=== PATIENT | female | born 1980 | race Caucasian/White ===

== ENCOUNTER → 2016-08-12 | Outpatient (REF) | payer OTHER ==
[2016-08-12 16:23] LABS: FREE T4 1.57 NG/DL (0.76-1.46)
== END ==
LOC: M LABDRAW1 15:28
PROVIDERS: ATTEND Nurse Practitioner Family
DX: E03.9 Hypothyroidism, unspecified (principal); E55.9 Vitamin D deficiency, unspecified

== ENCOUNTER → 2016-12-24 | Outpatient (REF) | payer OTHER ==
[2016-12-24 13:12] LABS: MEAN CORPUSCULAR HEMOGLOBIN 31.4 pg (27.0-33.0); MEAN CORPUSCULAR HGB CONC 33.8 g/dl (32.0-36.5); MEAN CORPUSCULAR VOLUME 93.1 fl (80.0-96.0); RED CELL DISTRIBUTION WIDTH 12.9 % (11.5-14.5); WHITE BLOOD COUNT 8.9 K/mm3 (4.0-10.0)
[2016-12-24 13:51] LABS: ANION GAP 6 MEQ/L (8-16); AST/SGOT 17 U/L (15-37); BLOOD UREA NITROGEN 11 MG/DL (7-18); CALCIUM LEVEL 9.1 MG/DL (8.5-10.1); CARBON DIOXIDE LEVEL 29 MEQ/L (21-32); CHLORIDE LEVEL 100 MEQ/L (98-107); CREATININE FOR GFR 0.74 MG/DL (0.55-1.02); GLOMERULAR FILTRATION RATE > 60.0 (>60); GLUCOSE, FASTING 66 MG/DL (70-105); POTASSIUM SERUM 4.2 MEQ/L (3.5-5.1); SODIUM LEVEL 135 MEQ/L (136-145)
[2016-12-24 13:52] LABS: ALBUMIN 3.7 GM/DL (3.2-5.2); ALBUMIN/GLOBULIN RATIO 1.06 (1.00-1.93); ALKALINE PHOSPHATASE 88 U/L (45-117); ALT/SGPT 19 U/L (12-78); BILIRUBIN,TOTAL 0.3 MG/DL (0.2-1.0); FERRITIN 10 NG/ML (8-252); FREE T4 1.47 NG/DL (0.76-1.46); TOTAL PROTEIN 7.2 GM/DL (6.4-8.2)
== END ==
LOC: M SFHCPLAZ 09:08
PROVIDERS: ATTEND Nurse Practitioner Family
DX: R53.83 Other fatigue (principal); E03.9 Hypothyroidism, unspecified; E55.9 Vitamin D deficiency, unspecified

== ENCOUNTER → 2017-06-05 | Outpatient (REF) | payer OTHER ==
[2017-06-05 12:21] LABS: HEMATOCRIT 39.8 % (36.0-47.0); MEAN CORPUSCULAR HEMOGLOBIN 30.1 pg (27.0-33.0); MEAN CORPUSCULAR HGB CONC 32.7 g/dl (32.0-36.5); MEAN CORPUSCULAR VOLUME 92.1 fl (80.0-96.0); PLATELET COUNT, AUTOMATED 373 10^3/uL (150-450); RED BLOOD COUNT 4.32 10^6/uL (4.00-5.40); RED CELL DISTRIBUTION WIDTH 12.6 % (11.5-14.5)
[2017-06-05 12:40] LABS: TOTAL 25(OH) VITAMIN D 14.8 NG/ML (30.0-100.0)
[2017-06-05 12:40] LABS: FOLATE 7.7 NG/ML; VITAMIN B12 LEVEL 381 PG/ML
[2017-06-05 12:45] LABS: FERRITIN 10 NG/ML (8-252); FREE T4 0.85 NG/DL (0.76-1.46)
== END ==
LOC: M SFHCPLAZ 08:25
DX: R53.83 Other fatigue (principal); E03.9 Hypothyroidism, unspecified; E55.9 Vitamin D deficiency, unspecified
CPT/HCPCS: 82746

== ENCOUNTER → 2017-07-08 | Outpatient (CLI) | payer OTHER | LOC: M SLEEP HO 12:50 | DX: G47.30 Sleep apnea, unspecified (principal) ==

== ENCOUNTER → 2018-01-02 | Outpatient (REF) | payer OTHER ==
[2018-01-02 12:20] LABS: FREE T4 0.76 NG/DL (0.76-1.46)
== END ==
LOC: M SFHCPLAZ 08:14
DX: E03.9 Hypothyroidism, unspecified (principal)

== ENCOUNTER → 2018-03-05 | Outpatient (REF) | payer OTHER ==
[2018-03-05 15:26] LABS: TOTAL 25(OH) VITAMIN D 9.2 NG/ML (30.0-100.0)
== END ==
LOC: M SFHCPLAZ 09:17
DX: E03.9 Hypothyroidism, unspecified (principal); E55.9 Vitamin D deficiency, unspecified

== ENCOUNTER 2018-09-23 17:18 | Emergency (ER) | payer OTHER ==
[~2018-09-23] VITALS: Ht 160 cm; Wt 95.9 kg
[2018-09-23] MEDS ORDERED: LEVO2TA PO ×2 (17:28→22:05)
[2018-09-23] MEDS ORDERED: LEXA1TAB PO (17:28)
[2018-09-23 18:25] LABS: BASO # 0.2 10^3/uL (0.0-0.2); BASO % 1.4 % (0.0-1.0); EOS # 0.2 10^3/uL (0.0-0.50); EOS % 1.4 % (0.0-3.0); HEMATOCRIT 40.5 % (36.0-47.0); HEMOGLOBIN 13.3 g/dl (12.0-15.5); LYMPH # 3.9 10^3/uL (1.5-4.5); LYMPH % 35.9 % (24.0-44.0); MEAN CORPUSCULAR HEMOGLOBIN 28.6 pg (27.0-33.0); MEAN CORPUSCULAR HGB CONC 32.8 g/dl (32.0-36.5); MEAN CORPUSCULAR VOLUME 87.1 fl (80.0-96.0); MONO # 0.6 10^3/uL (0.0-0.8); MONO % 5.6 % (0.0-5.0); NEUTROPHILS % 55.3 % (36.0-66.0); PLATELET COUNT, AUTOMATED 437 10^3/uL (150-450); RED BLOOD COUNT 4.65 10^6/uL (4.00-5.40); WHITE BLOOD COUNT 10.9 10^3/uL (4.0-10.0)
[2018-09-23] MEDS ORDERED: LABETALOL HCL 100 MG/20 ML VIAL IV STA (18:29)
[2018-09-23 18:36] LABS: INR 0.92; PROTHROMBIN TIME 12.4 SECONDS (12.1-14.4)
[2018-09-23 18:37] LABS: PARTIAL THROMBOPLASTIN TIME 31.2 SECONDS (25.4-37.6)
[2018-09-23 18:39] LABS: D-DIMER QUANT 393.46 ng/ml (<500)
--- NOTE | 2018-09-23 18:40 | REP ---
Chest one-view HISTORY: Chest pain Comparison: None The lungs are clear. The heart is normal in size. The pulmonary vasculature is normal in appearance. Impression: No acute disease. Electronically Signed by Dayday Monreal MD 09/23/2018 06:31 P
[2018-09-23 18:51] LABS: ERYTHROCYTE SEDIMENTATION RATE 24 mm/hr (0-20)
[2018-09-23 19:09] LABS: ALBUMIN 3.6 GM/DL (3.2-5.2); ALT/SGPT 20 U/L (12-78); BILIRUBIN,DIRECT < 0.1 MG/DL (0.0-0.2); BILIRUBIN,TOTAL 0.3 MG/DL (0.2-1.0); BLOOD UREA NITROGEN 12 MG/DL (7-18); C REACTIVE PROTEIN QUANTITATIV < 0.30 MG/DL (0.00-0.30); CALCIUM LEVEL 8.6 MG/DL (8.5-10.1); CARBON DIOXIDE LEVEL 27 MEQ/L (21-32); CHLORIDE LEVEL 106 MEQ/L (98-107); CK-MB VALUE MASS < 1.0 NG/ML (<3.6); CPK CREATINE PHOSPHOKINASE 47 U/L (26-192); CREATININE FOR GFR 0.82 MG/DL (0.55-1.30); FREE T4 0.67 NG/DL (0.76-1.46); GLOMERULAR FILTRATION RATE > 60.0 (>58); GLUCOSE, FASTING 83 MG/DL (70-100); MB/CK RELATIVE INDEX 2.13 (< OR =4); NT-PRO BNP 122 PG/ML (<125); POTASSIUM SERUM 4.1 MEQ/L (3.5-5.1); SODIUM LEVEL 140 MEQ/L (136-145); TOTAL PROTEIN 7.3 GM/DL (6.4-8.2); TROPONIN I < 0.02 NG/ML (< 0.10)
[2018-09-23] MEDS ORDERED: LISINOPRIL 10 MG TAB PO ONE (20:30)
[2018-09-23] MEDS ORDERED: FUROSEMIDE 20 MG/2 ML VIAL (J1940) IV ONE (20:30)
[2018-09-23] MEDS ORDERED: CARVedilol 12.5 MG TAB PO ONE (20:30)
[2018-09-23 20:39] VITALS: BP 219/103
[2018-09-23] MEDS ORDERED: LISI10TA4 PO (22:05)
[2018-09-23] MEDS ORDERED: SYNT50TA PO (22:05)
[2018-09-23] MEDS ORDERED: CHLO125TA PO (22:05)
[2018-09-23] MEDS ORDERED: CORE25TA PO (22:05)
[2018-09-23] MEDS ORDERED: ADULKIT XX (22:14)
--- NOTE | 2018-09-23 22:22 | ECGEPIP ---
Stationary ECG Study [facility] - ED Test Date: 2018-09-23 Pat Name: SAYRA BRUCE Department: Room: - Gender: F Manager Relationship: tamara : 1980 Requested By: NAMRATA Velazco Order Number: [id number] Reading MD: Cyrus Sequeira Measurements Intervals [place] Rate: 77 P: -1 IL: 182 QRS: 0 QRSD: 87 T: 110 QT: 378 QTc: 428 Interpretive Statements SINUS RHYTHM MINIMAL VOLTAGE CRITERIA FOR LVH, CONSIDER NORMAL VARIANT NONSPECIFIC T-WAVE ABNORMALITY NO PRIORS FOR COMPARISON Electronically Signed On 09-23-2018 22:22:32 EDT by Cyrus Sequeira
[2018-09-23 22:30] VITALS: BP 118/56
== END 2018-09-23 22:48 | disposition home or self-care (01) ==
LOC: M ED 17:18
DX: I10 Essential (primary) hypertension (principal); E03.9 Hypothyroidism, unspecified; F41.9 Anxiety disorder, unspecified; F32.9 Major depressive disorder, single episode, unspecified; E78.5 Hyperlipidemia, unspecified; Z98.84 Bariatric surgery status; Z79.899 Other long term (current) drug therapy
CPT/HCPCS: 36415; 71045; 80048; 80076; 81001; 82550; 82553; 83880; 84439; 84443; 85025; 85379; 85610; 85652; 85730; 86140; 93005; 93041; 94760; 96374; 96375; 99285; J1940

== ENCOUNTER → 2018-09-29 | Outpatient (REF) | payer OTHER ==
[~2018-09-29] MED LIST: ADULKIT XX; CHLO125TA PO; CORE25TA PO; LEVO2TA PO; LEXA1TAB PO; LISI10TA4 PO; SYNT50TA PO
[2018-09-29 16:32] LABS: CREATININE FOR GFR 1.11 MG/DL (0.55-1.30); POTASSIUM SERUM 4.6 MEQ/L (3.5-5.1)
== END ==
LOC: M LABDRAW1 16:07
PROVIDERS: ATTEND Nurse Practitioner Family
DX: I10 Essential (primary) hypertension (principal)

== ENCOUNTER → 2018-10-01 | Outpatient (REF) | payer OTHER | LOC: M SFHCPLAZ 09:09 | PROVIDERS: ATTEND Nurse Practitioner Family | DX: R34 Anuria and oliguria (principal); I10 Essential (primary) hypertension; Z53.9 Procedure and treatment not carried out, unspecified reason ==

== ENCOUNTER → 2018-10-02 | Outpatient (CLI) | payer OTHER ==
--- NOTE | 2018-10-02 08:31 | REP ---
Clinical: Right. Hypertension and decreased urine output. Technique: Bosch scale and color Doppler evaluation of the kidneys and renal vasculature using curved array transducer. Findings: The kidneys are essentially normal in contour size and echogenicity and reniform shape without hydronephrosis, nephrolithiasis, cystic or renal mass lesion. Right kidney measures 11.0 x 5.8 x 5.7 cm . Left kidney measures 11.1 x 5.6 x 6.5 cm . Simple right renal cyst measures 1.3 cm maximal diameter and simple left renal cyst measures 1.0 cm maximal diameter. Bladder is incompletely distended and grossly normal by current evaluation. Incidental enlarged left ovary measuring 4.4 x 3.7 x 3.6 cm with 3.6 cm complex cyst. Color Doppler evaluation of the renal vasculature demonstrates normal arterial wave patterns, velocities, renal aortic ratios, resistive indices and the acceleration time. No sonographic evidence for renal arterial stenosis noted. Renal vein is patent. Right Kidney: Peak arterial velocity: 102 cm/sec . Renal aortic ratio: 1.3 . Resistive indices: 0.63 - 0.66 Acceleration times: 0.038 - 0.054 . Left kidney: Peak arterial velocity: 87 cm/sec . Renal aortic ratio: 1.1 . Resistive indices: 0.62 - 0.65 . Acceleration times: 0.036 - 0.048 . Impression: 1. Solitary bilateral small renal cysts. No hydronephrosis. 2. No sonographic evidence to suggest renal arterial stenosis. Electronically Signed by Sergey Manzanares MD 10/02/2018 08:21 A
== END ==
LOC: M RAD 06:25
PROVIDERS: ATTEND Nurse Practitioner Family
DX: N83.202 Unspecified ovarian cyst, left side (principal); N28.1 Cyst of kidney, acquired; I10 Essential (primary) hypertension

== ENCOUNTER → 2018-10-02 | Outpatient (REF) | payer OTHER ==
[2018-10-02 10:12] LABS: APPEARANCE, URINE CLEAR (CLEAR); BACTERIA, URINE AUTO NEGATIVE (NEGATIVE); BILIRUBIN, URINE AUTO NEGATIVE (NEGATIVE); BLOOD, URINE BLOOD NEGATIVE (NEGATIVE); COLOR, URINE YELLOW (YELLOW); GLUCOSE, URINE (UA) AUTO NEGATIVE (NEGATIVE); KETONE, URINE AUTO NEGATIVE (NEGATIVE); LEUKOCYTE ESTERASE, URINE AUTO NEGATIVE (NEGATIVE); MUCUS, URINE SMALL (NEGATIVE); NITRITE, URINE AUTO NEGATIVE (NEGATIVE); PROTEIN, URINE AUTO NEGATIVE (NEGATIVE); RBC, URINE AUTO 1 /HPF (0-3); SPECIFIC GRAVITY URINE AUTO 1.021 (1.002-1.035); SQUAMOUS EPITHELIAL CELL UR AU 1 /HPF (0-6); WBC, URINE AUTO 1 /HPF (0-3)
[2018-10-02 11:05] LABS: MALB URINE SIEMENS 17.3 MG/L; MAU/CREAT RATIO 13.5 MCG/MG (0.0-30.0)
== END ==
LOC: M SFHCPLAZ 09:10
PROVIDERS: ATTEND Nurse Practitioner Family
DX: R34 Anuria and oliguria (principal); I10 Essential (primary) hypertension

== ENCOUNTER → 2018-11-18 | Outpatient (REF) | payer OTHER ==
[2018-11-18 10:14] LABS: ALBUMIN 3.5 GM/DL (3.2-5.2); ALT/SGPT 17 U/L (12-78); BILIRUBIN,TOTAL 0.3 MG/DL (0.2-1.0); BLOOD UREA NITROGEN 19 MG/DL (7-18); CALCIUM LEVEL 9.4 MG/DL (8.5-10.1); CARBON DIOXIDE LEVEL 30 MEQ/L (21-32); CHLORIDE LEVEL 105 MEQ/L (98-107); CHOLESTEROL LEVEL 181 MG/DL (<200); CREATININE FOR GFR 0.98 MG/DL (0.55-1.30); FREE T4 1.42 NG/DL (0.76-1.46); GLOMERULAR FILTRATION RATE > 60.0 (>58); GLUCOSE, FASTING 92 MG/DL (70-100); HDL CHOLESTEROL 55 MG/DL (>40); LDL CHOLESTEROL 101 MG/DL (<100); NON-HDL-C 126 MG/DL; POTASSIUM SERUM 4.3 MEQ/L (3.5-5.1); SODIUM LEVEL 140 MEQ/L (136-145); THYROID STIMULATING HORMONE 0.685 uIU/ML (0.358-3.740); TOTAL PROTEIN 6.8 GM/DL (6.4-8.2); TRIGLYCERIDES LEVEL 124 MG/DL (<150)
[2018-11-18 10:22] LABS: TOTAL 25(OH) VITAMIN D 12.2 NG/ML (30.0-100.0)
[2018-11-18 10:26] LABS: HEMOGLOBIN A1c 6.4 %
[2018-11-18 10:35] LABS: MAU/CREAT RATIO 10.6 MCG/MG (0.0-30.0)
== END ==
LOC: M SFHCPLAZ 07:48
PROVIDERS: ATTEND Nurse Practitioner Family
DX: E03.9 Hypothyroidism, unspecified (principal); E55.9 Vitamin D deficiency, unspecified; E88.81 Metabolic syndrome and other insulin resistance

== ENCOUNTER → 2019-02-16 | Outpatient (REF) | payer OTHER ==
[2019-02-16 12:41] LABS: HEMOGLOBIN A1c 5.5 %
[2019-02-16 13:00] LABS: TOTAL 25(OH) VITAMIN D 20.5 NG/ML (30.0-100.0)
[2019-02-16 13:09] LABS: ALBUMIN 3.6 GM/DL (3.2-5.2); ALT/SGPT 18 U/L (12-78); BILIRUBIN,TOTAL 0.4 MG/DL (0.2-1.0); BLOOD UREA NITROGEN 19 MG/DL (7-18); CALCIUM LEVEL 8.7 MG/DL (8.5-10.1); CARBON DIOXIDE LEVEL 24 MEQ/L (21-32); CHLORIDE LEVEL 102 MEQ/L (98-107); CREATININE FOR GFR 1.04 MG/DL (0.55-1.30); FREE T4 1.35 NG/DL (0.76-1.46); GLOMERULAR FILTRATION RATE > 60.0 (>58); GLUCOSE, FASTING 86 MG/DL (70-100); POTASSIUM SERUM 4.2 MEQ/L (3.5-5.1); SODIUM LEVEL 136 MEQ/L (136-145); TOTAL PROTEIN 6.9 GM/DL (6.4-8.2)
== END ==
LOC: M LABDRAW1 10:54
PROVIDERS: ATTEND Nurse Practitioner Family
DX: E03.9 Hypothyroidism, unspecified (principal); E88.81 Metabolic syndrome and other insulin resistance; E55.9 Vitamin D deficiency, unspecified

== ENCOUNTER → 2019-11-03 | Outpatient (REF) | payer BC ==
[2019-11-03 18:05] LABS: BLOOD UREA NITROGEN 14 MG/DL (7-18); CALCIUM LEVEL 8.9 MG/DL (8.5-10.1); CARBON DIOXIDE LEVEL 29 MEQ/L (21-32); CHLORIDE LEVEL 106 MEQ/L (98-107); FREE T4 1.37 NG/DL (0.76-1.46); GLOMERULAR FILTRATION RATE > 60.0 (>58); GLUCOSE, FASTING 67 MG/DL (70-100); POTASSIUM SERUM 4.4 MEQ/L (3.5-5.1); SODIUM LEVEL 140 MEQ/L (136-145); TOTAL 25(OH) VITAMIN D 18.4 NG/ML (30.0-100.0)
== END ==
LOC: M SFHCPLAZ 15:09
PROVIDERS: ATTEND Nurse Practitioner Family
DX: E03.9 Hypothyroidism, unspecified (principal); I10 Essential (primary) hypertension; E55.9 Vitamin D deficiency, unspecified

== ENCOUNTER → 2019-11-05 | Outpatient (CLI) | payer BC ==
--- NOTE | 2019-11-06 09:13 | REP ---
BILATERAL MAMMOGRAM WITH 3D TOMOSYNTHESIS AND ULTRASOUND RIGHT BREAST: CLINICAL HISTORY: Right breast pain, outer right breast for 3 weeks. No comparison studies. MLO and CC views of both breasts performed with 3D tomosynthesis. There is mild to moderate diffuse scattered fibroglandular tissue bilaterally. No suspicious mass or architectural distortion is seen bilaterally. No suspicious clusters of microcalcifications are seen. Real-time sonographic evaluation of the right breast are performed in the region of pain. There is no sonographic evidence of cystic or solid mass in this region. According to the agricultural research technologist, this was predominantly in the 6-o'clock region of the right breast. IMPRESSION: BIRADS 1: BI-RADS/ACR category 1 mammogram. Negative Mammogram. ACR 1 negative mammogram. No mass or clustered microcalcifications bilaterally. No mammographic or sonographic evidence of mass at the site of the reported pain right breast. Clinical correlation and followup recommended. Recommend followup mammogram in 1 year. This mammogram was interpreted with the aid of an FDA-approved computer-aided detection system. A. Negative x-ray reports should not delay biopsy if a dominant or clinically suspicious mass is present. B. Four to eight percent of cancers are not identified by x-ray. C. Adenosis and dense breasts may obscure an underlying neoplasm. The patient states she/he had a clinical breast exam in November 2019. The patient letter being requested is M2.
== END ==
LOC: M WHC 13:50
PROVIDERS: ATTEND Nurse Practitioner Family
DX: Z12.31 Encounter for screening mammogram for malignant neoplasm of breast (principal)
CPT/HCPCS: 76642; 77066; G0279

== ENCOUNTER → 2021-02-02 | Outpatient (CLI) | payer OTHER ==
[~2021-02-02] MED LIST changes: +LISI10TA22 PO; -LISI10TA4 PO
[2021-02-02 18:12] LABS: HEMOGLOBIN A1c 5.6 %
[2021-02-02 18:30] LABS: ALBUMIN 3.2 GM/DL (3.2-5.2); ALT/SGPT 26 U/L (12-78); BILIRUBIN,TOTAL 0.3 MG/DL (0.2-1.0); BLOOD UREA NITROGEN 10 MG/DL (7-18); CALCIUM LEVEL 8.8 MG/DL (8.5-10.1); CARBON DIOXIDE LEVEL 27 MEQ/L (21-32); CHLORIDE LEVEL 108 MEQ/L (98-107); FREE T4 1.33 NG/DL (0.76-1.46); GLOMERULAR FILTRATION RATE > 60.0 (>58); GLUCOSE, FASTING 108 MG/DL (70-100); POTASSIUM SERUM 4.3 MEQ/L (3.5-5.1); SODIUM LEVEL 140 MEQ/L (136-145); THYROID STIMULATING HORMONE 0.037 uIU/ML (0.358-3.740); TOTAL 25(OH) VITAMIN D 11.2 NG/ML (30.0-100.0); TOTAL PROTEIN 6.4 GM/DL (6.4-8.2)
== END ==
LOC: M PLALAB 15:43
PROVIDERS: ATTEND Nurse Practitioner Family
DX: I10 Essential (primary) hypertension (principal)

== ENCOUNTER → 2021-03-16 | Outpatient (CLI) | payer OTHER ==
--- NOTE | 2021-03-16 11:10 | REP ---
INDICATION: CARPAL TUNNEL SYYDROME. COMPARISON: None. TECHNIQUE: Four views FINDINGS: There is no acute fracture or destructive osseous lesion. IMPRESSION: Within normal limits <Electronically signed by Wilder Walter > 03/16/21 1101
== END ==
LOC: M SOG 10:23
PROVIDERS: ATTEND Orthopaedic Surgery
DX: G56.01 Carpal tunnel syndrome, right upper limb (principal)

== ENCOUNTER → 2021-04-13 | Outpatient (CLI) | payer OTHER ==
[~2021-04-13] MED LIST changes: +LISI40TA4 PO; +SYNT175T2 PO
== END ==
LOC: M LABSMTC 11:21
PROVIDERS: ATTEND Anesthesiology
DX: Z01.818 Encounter for other preprocedural examination (principal); Z11.52 Encounter for screening for COVID-19

== ENCOUNTER 2021-04-18 10:29 | Day surgery (SDC) | payer OTHER ==
[~2021-04-18] VITALS: Ht 160 cm; Wt 104.8 kg
[~2021-04-18 10:29] MED LIST changes: +LR 1,000 ML IV ONE; +ceFAZolin SOD 2 GM in IV 1 EA IV ONE
--- OUTSIDE RECORDS SUMMARY | 2021-04-18 10:33 | CCD | Continuity of Care Document ---
Author Author Neli ROLLE DO Organization Unknown Address [address] [place] [address], [place] [address] Phone [phone] Care Team Providers Care [employer] Professional Name Role Phone Taj Karen Robbin AUTM [phone] Problems Active Problems Provider Date Essential hypertension Jaciel Rolle DO Onset: 02/13/20 21 Social History Type Date Description Comments Sex Unknown ETOH Use Sociable Tobacco Use Start: Unknown Patient has never smoked Recreational Drug Use Denies Drug Use Smoking Status Reviewed: 02/12/21 Patient has never smoked Allergies, Adverse Reactions, Alerts Description No Known Drug Allergies Medications Active Medications SIG Qnty Indications Ordering Provide r Date Levothyroxine Sodium 200mcg Tablet s Take One Tablet By Mouth In The Morning On An Empty Stomach With 25mcg Tablet Unknown Lisinopril 40mg Tablets Take One Tablet By Mouth Every Morning Unknown Omeprazole 20mg Capsules DR Take One Capsule By Mouth Every Day as Needed Unknown Escitalopram Oxalate 20mg Tablets Take One Tablet By Mouth Every Day Unknown Vitamin D3 1.25mg (65062 Ut) Capsu les 1 time weekly Unknown Immunizations Description No Information Available Vital Signs Date Vital Result Comment 02/12/2021 10:01am Body Temperature 97.8 F Results Description No Information Available Procedures Date Code Description Status 02/12/2021 01531 Office/Outpatient New Low MDM 30 -44 Minutes Completed Medical Devices Description No Information Available Encounters Type Date Location Provider Dx Diagnosis Office Visit 02/12/2021 10:00a [facility] Abby Rolle DO G56.01 Carpal tunnel syndrome, right upper limb Assessments Date Code Description Provider 02/12/2021 G56.01 Carpal tunnel syndrome, right up per limb Jaciel Rolle DO Plan of Treatment 02/12/2021 - Jaciel Rolle DO* G56.01 Carpal tunnel syndrome, right upper limb* Comments:* 1. Right short wrist brace. Use at night and during activities that aggravate her wrist symptoms.2. Referred for EMG nerve conduction studies of bilateral upper extremities3. Follow-up to review EMG nerve conduction studies, symptoms after using wrist brace. 4. Consider possible steroid injection and nerve gliding exercises. * Referral:* [facility]rology, Functional Status Description No Information Available Mental Status Description No Information Available Referrals Refer to Reason for Referral Status Appt Date [facility] Right carpal tunnel syndrome Sent 03/01/2021
--- OUTSIDE RECORDS SUMMARY | 2021-04-18 10:33 | CCD | Continuity of Care Document ---
Author Author Neli ROLLE DO Organization Unknown Address [address] [place] [address], [place] [address] Phone [phone] Care Team Providers Care Internet Marketing Director Name Role Phone Taj Karen Robbin AUTM [phone] Problems Active Problems Provider Date Essential hypertension Jaciel Rolle DO Onset: 02/13/20 21 Social History Type Date Description Comments Sex Unknown ETOH Use Sociable Tobacco Use Start: Unknown Patient has never smoked Recreational Drug Use Denies Drug Use Smoking Status Reviewed: 02/12/21 Patient has never smoked Allergies and adverse reactions Description No Known Drug Allergies Medications Active [...] Mouth Every Day Unknown Vitamin D3 1.25mg (52264 Ut) Capsu les 1 time weekly Unknown Immunizations Description No Information Available Vital Signs Date Vital Result Comment 03/16/2021 9:12am Body Temperature 97.6 F 02/12/2021 10:01am Body Temperature 97.8 F Results Description No Information Available Procedures Date Code Description Status 02/12/2021 70286 Office/Outpatient New Low MDM 30 -44 Minutes Completed Medical Devices Description No Information Available Encounters Type Date Location Provider Dx Diagnosis Office Visit 02/12/2021 10:00a [facility] Abby Rolle DO G56.01 Carpal tunnel syndrome, right upper limb Assessments Date Code Description Provider 03/16/2021 G56.01 Carpal tunnel syndrome, right up per limb Jaciel Rolle DO 02/12/2021 G56.01 Carpal tunnel syndrome, right up per limb Jaciel Rolle DO Plan of Treatment 03/16/2021 - Jaciel Rolle DO* G56.01 Carpal tunnel syndrome, right upper limb* New Xrays:* XR Wrist Complete Minimum 3 Views Right, Ordered: 03/16/21 * Comments:* Patient consented for right arthroscopic carpal tunnel release possible open carpal tunnel release. Functional Status Description No Information Available Mental Status Description No Information Available Referrals Refer to Reason for Referral Status Appt Date [facility] Neurology Right carpal tunnel syndrome Closed 03/01/2021
--- OUTSIDE RECORDS SUMMARY | 2021-04-18 10:33 | CCD | Continuity of Care Document ---
Author Author Neli ROLLE DO Organization Unknown Address [address] [place] [address], [place] [address] Phone [phone] Care Team Providers Care Pbx Wire Chief Name Role Phone Taj Karen Robbin AUTM [phone] Problems Active Problems Provider Date Essential hypertension [...] Mouth Every Day Unknown Vitamin D3 1.25mg (94550 Ut) Capsu les 1 time weekly Unknown Immunizations Description No Information Available Vital Signs Date Vital Result Comment 03/16/2021 9:12am Body Temperature 97.6 F 02/12/2021 10:01am Body Temperature 97.8 F Results Description No Information Available Procedures Date Code Description Status 02/12/2021 39514 Office/Outpatient New Low MDM 30 -44 Minutes Completed Medical Devices Description No Information Available Encounters Type Date Location Provider Dx Diagnosis Office Visit 02/12/2021 10:00a [facility] Abby Rolle DO G56.01 Carpal tunnel [...] to Reason for Referral Status Appt Date [facility] Neurology Right carpal tunnel syndrome Closed 03/01/2021
--- OUTSIDE RECORDS SUMMARY | 2021-04-18 10:33 | CCD | Continuity of Care Document ---
Author Neli Pino M.D. Organization Unknown Address [address] [place] [address] Phone [phone] Care Team Providers Care Financial Aid Coordinator Name Role Phone Pack, Jaciel Trujillo DO AUTM [phone] Karen Vang AUTM [phone] Problems Active Problems Provider Date Hand pain Hugo Bowers M.D. Onset: 02/28/2021 Numbness of hand Hugo Bowers M.D. Onset: 02/28/2021 Carpal tunnel syndrome Hugo Bowers M.D. Onset: 02/28/2021 Social History Type Date Description Comments Sex Unknown Tobacco Use Start: Unknown Patient has never smoked Allergies and adverse reactions Description No Known Drug Allergies Medications Active Medications SIG Qnty Indications Ordering Provide r Date Tylenol 8 Hour 650mg Tablets ER Hugo Bowers M.D. 02/28/2021 Immunizations Description No Information Available Vital Signs Date Vital Result Comment 03/01/2021 10:42am BP Systolic 120 mmHg BP Diastolic 80 mmHg Heart Rate 72 /min Height 63 inches 5'3" Weight 231.00 lb BMI (Body Mass Index) 40.9 kg/m2 [place] Body Weight 115 lb Results Description No Information Available Procedures Date Code Description Status 03/01/2021 52818 Nerve Conduction 9-10 Studies Co mpleted 03/01/2021 15590 Needle Electromyogra phy Non Extremity Done With Nerve Conduction Completed 03/01/2021 75695 Needle Electromyography Complete , Five Or More Muscles Studied Completed Medical Devices Description No Information Available Encounters Description No Information Available Assessments Date Code Description Provider 03/01/2021 G56.01 Carpal tunnel syndrome, right up per limb Hugo Bowers M.D. 03/01/2021 G56.00 Carpal tunnel syndrome, unspecif ied upper limb Hugo Elissa, MAndraDAndra 03/01/2021 M25.541 Pain in joints of right hand Abd ul Elissa, MateoDAndra 03/01/2021 M54.12 Radiculopathy, cervical region A bdul Braxton Bowers 03/01/2021 M25.549 Pain in joints of unspecified ambriz nd Hugo Elissa, Braxton 03/01/2021 R20.2 Paresthesia of skin Hugo Braxton Bowers Plan of Treatment No Information Available Functional Status Description No Information Available Mental Status Description No Information Available Referrals Description No Information Available
--- OUTSIDE RECORDS SUMMARY | 2021-04-18 10:33 | CCD | Continuity of Care Document ---
Author Neli Pino M.D. Organization Unknown Address [address] [place] [address] Phone [phone] Care Team Providers Care Electric Motor Control Assembler Name Role Phone Pack, Jaciel Trujillo DO AUTM [phone] Karen Vang AUTM [phone] Problems Active Problems Provider Date Hand pain Hugo Bowers M.D. Onset: 02/28/2021 Numbness of hand Hugo Bowers M.D. Onset: 02/28/2021 Carpal tunnel syndrome Hugo Bowers M.D. Onset: 02/28/2021 Social History Type Date Description Comments Sex Unknown Tobacco Use Start: Unknown Patient has never smoked Allergies, Adverse Reactions, [...] lb BMI (Body Mass Index) 40.9 kg/m2 [place] Body Weight 115 lb Results Description No Information Available Procedures Date Code Description Status 03/01/2021 58808 Nerve Conduction 9-10 Studies Co mpleted 03/01/2021 65717 Needle Electromyogra phy Non Extremity Done With Nerve Conduction Completed 03/01/2021 41479 Needle Electromyography Complete , Five Or More Muscles Studied Completed Medical Devices Description No Information Available Encounters Description No Information Available Assessments Date Code Description Provider 03/01/2021 G56.00 Carpal tunnel syndrome, unspecif ied upper limb Hugo Bowers M.D. 03/01/2021 M54.12 Radiculopathy, cervical region A berry Bowers M.D. 03/01/2021 M25.549 Pain in joints of unspecified ambriz nd Hugo Bowers M.D. 03/01/2021 R20.2 Paresthesia of skin Hugo Bowers M.D. Plan of Treatment No Information Available Functional Status Description No Information Available Mental Status Description No Information Available Referrals Description No Information Available
--- OUTSIDE RECORDS SUMMARY | 2021-04-18 10:33 | CCD | Continuity of Care Document ---
Author Author Neli ROLLE DO Organization Unknown Address [address] [place] [address], [place] [address] Phone [phone] Care Team Providers Care Warehouse Shift Supervisor Name Role Phone Taj Karen Robbin AUTM [phone] Problems Active Problems Provider Date Essential hypertension [...] Mouth Every Day Unknown Vitamin D3 1.25mg (76252 Ut) Capsu les 1 time weekly Unknown Immunizations Description No Information Available Vital Signs Date Vital Result Comment 03/16/2021 9:12am Body Temperature 97.6 F 02/12/2021 10:01am Body Temperature 97.8 F Results Description No Information Available Procedures Date Code Description Status 02/12/2021 00590 Office/Outpatient New Low MDM 30 -44 Minutes Completed Medical Devices Description No Information Available Encounters Type Date Location Provider Dx Diagnosis Office Visit 02/12/2021 10:00a [facility] Abby Rolle DO G56.01 Carpal tunnel [...] to Reason for Referral Status Appt Date [facility] Neurology Right carpal tunnel syndrome Closed 03/01/2021
--- OUTSIDE RECORDS SUMMARY | 2021-04-18 10:33 | CCD | Continuity of Care Document ---
Author Author Neli ROLLE DO Organization Unknown Address [address] [place] [address], [facility] [place] [address] Phone [phone] Care Team Providers Care Jig Boring Machine Set Up Operator Name Role Phone Karen Vang Robbin AUTM [phone] Problems Active Problems Provider Date Essential hypertension [...] Mouth Every Day Unknown Vitamin D3 1.25mg (80790 Ut) Capsu les 1 time weekly Unknown Immunizations Description No Information Available Vital Signs Date Vital Result Comment 03/16/2021 9:12am Body Temperature 97.6 F 02/12/2021 10:01am Body Temperature 97.8 F Results Description No Information Available Procedures Date Code Description Status 03/16/2021 77945 Office/Outpatient Established Mo d MDM 30-39 Min Completed 02/12/2021 96126 Office/Outpatient New Low MDM 30 -44 Minutes Completed Medical Devices Description No Information Available Encounters Type Date Location Provider Dx Diagnosis Office Visit 03/16/2021 9:20a [facility] Abby Rolle DO G56.01 Carpal tunnel syndrome, right upper limb Office Visit 02/12/2021 10:00a [facility] Abby Rolle DO G56.01 Carpal tunnel syndrome, right upper limb Assessments Date Code Description Provider 03/16/2021 G56.01 Carpal tunnel syndrome, right up per limb Jaciel Rolle DO 02/12/2021 G56.01 Carpal tunnel syndrome, right up per limb Jaciel Rolle DO Plan of Treatment 03/16/2021 - Jaciel Rolle DO* G56.01 Carpal tunnel syndrome, right upper limb* Comments:* Patient consented for right arthroscopic carpal tunnel release possible open carpal tunnel release. Functional Status Description No Information Available Mental Status Description No Information Available Referrals Refer to Reason for Referral Status Appt Date [facility] Neurology Right carpal tunnel syndrome Closed 03/01/2021
--- OUTSIDE RECORDS SUMMARY | 2021-04-18 10:34 | CCD ---
Author Author [facility] Organization [facility] Address Unknown Phone Unavailable Care Team Providers Care Manager Of Manufacturing Name Role Phone PACK, SILVERIO TAPIA MD Unavailable Unavailable PACKSILVERIO MD Unavailable Unavailable PACK, SILVERIO TAPIA MD Unavailable Unavailable Re-disclosure Warning The records that you are about to access may contain information from federally-assisted alcohol or drug abuse programs. If such information is present, then the following federally mandated warning applies: This information has been disclosed to you from records protected by federal confidentiality rules (42 CFR part 2). The federal rules prohibit you from making any further disclosure of this information unless further disclosure is expressly permitted by the written consent of the person to whom it pertains or as otherwise permitted by 42 CFR part 2. A general authorization for the release of medical or other information is NOT sufficient for this purpose. The Federal rules restrict any use of the information to criminally investigate or prosecute any alcohol or drug abuse patient.The records that you are about to access may contain highly sensitive health information, the redisclosure of which is protected by Article 27-F of the [facility] Public Health law. If you continue you may have access to information: Regarding HIV / AIDS; Provided by facilities licensed or operated by the [facility] Office of Mental Health; or Provided by the [facility] Office for People With Developmental Disabilities. If such information is present, then the following [facility] mandated warning applies: This information has been disclosed to you from confidential records which are protected by state law. State law prohibits you from making any further disclosure of this information without the specific written consent of the person to whom it pertains, or as otherwise permitted by law. Any unauthorized further disclosure in violation of state law may result in a fine or skilled nursing sentence or both. A general authorization for the release of medical or other information is NOT sufficient authorization for further disc losure. Family History Family Member Name Family Member Gender Family Member Status Date o f Status Description Data Source(s) Unknown Male Problem MEDENT ([facility]) Unknown Female Problem MEDENT ([facility], ) Encounters Encounter Providers Location Date Indications Data Source(s ) Outpatient Attender: SILVERIO Betts/Louis/Jack/ Reindl 03/16/2021 09:20:00 AM EDT MEDENT ([facility], ) Outpatient Attender: SILVERIO Betts/Louis/Jack/ Reinimer 02/12/2021 10:00:00 AM EDT MEDENT ([facility], ) Unknown [address] [address] [address] 02/05/2021 12:00:00 AM EDT eCW1 ([facility]) Outpatient [address] [facility] [address] [address] 02/02/2021 12:00:00 AM EDT eCW1 ([facility]) Unknown [address] [facility] [address] [address] 02/02/2021 12:00:00 AM EDT eCW1 ([facility]) Unknown [address] [facility] [address] [address] 09/21/2020 12:00:00 AM EDT eCW1 ([facility]) Unknown [address] [facility] [address] [address] 07/05/2020 12:00:00 AM EST eCW1 ([facility]) Outpatient [address] [facility] [address] [address] 04/05/2020 12:00:00 AM EST eCW1 ([facility]) Immunizations Vaccine Date Status Description Data Source(s) influenza, recombinant, quadrIvalent,injectable, prese rvative free 04/05/2020 04:29:00 PM EST completed eCW1 ([facility]) influenza, recombinant, quadrIvalent,injectable, prese rvative free 04/05/2020 04:29:00 PM EST completed eCW1 ([facility]) influenza, recombinant, quadrIvalent,injectable, prese rvative free 04/05/2020 04:29:00 PM EST completed eCW1 ([facility]) influenza, recombinant, quadrIvalent,injectable, prese rvative free 04/05/2020 04:29:00 PM EST completed eCW1 ([facility]) influenza, recombinant, quadrIvalent,injectable, prese rvative free 04/05/2020 04:29:00 PM EST completed eCW1 ([facility]) influenza, recombinant, quadrIvalent,injectable, prese rvative free 04/05/2020 04:29:00 PM EST completed eCW1 ([facility]) Medications Medication Brand Name Start Date Product Form Dose Route Admi nistrative Instructions Pharmacy Instructions Status Indications Reaction Description Data Source(s) 8 HR Acetaminophen 650 MG Extended Release Oral Tablet [Tyle nol] Tylenol 8 Hour 02/28/2021 12:00:00 AM EDT active MEDENT ([facility]) 800 mg 02/26/2021 12:00:00 AM EDT tablet 20 TAKE 1 TABLET BY MOUTH EVERY 6 TO 8 HOURS TAKE 1 TABLET BY MOUTH EVERY 6 TO 8 HOURS SOLD: 02/26/2021 [facility] Cephalexin 500 MG Oral Capsule CEPHALEXIN 02/26/2021 12:00:00 AM EDT capsule 28 TAKE 1 CAPSULE BY MOUTH EVERY 6 HOURS TAKE 1 CAPSULE BY MOUT H EVERY 6 HOURS SOLD: 02/26/2021 [facility] 175 mcg 02/07/2021 12:00:00 AM EDT tablet 30 TAKE ONE TABLET BY MOUTH EVERY MORNING ON AN EMPTY STOMACH TAKE ONE TABLET BY MOUTH EVERY MORNING O N AN EMPTY STOMACH SOLD: 02/08/2021 [facility] Levothyroxine Sodium 0.175 MG Oral Tablet Levothyroxin e Sodium 175 MCG Levothyroxine Sodium 175 MCG 02/06/2021 12:00:00 AM EDT active Levothyroxine Sodium 175 MCG eCW1 ([facility]) Levothyroxine Sodium 0.175 MG Oral Tablet Levothyroxin e Sodium 175 MCG Levothyroxine Sodium 175 MCG 02/06/2021 12:00:00 AM EDT active Levothyroxine Sodium 175 MCG eCW1 ([facility]) Levothyroxine Sodium 0.175 MG Oral Tablet Levothyroxin e Sodium 175 MCG Levothyroxine Sodium 175 MCG 02/06/2021 12:00:00 AM EDT active Levothyroxine Sodium 175 MCG eCW1 ([facility]) 1,250 mcg (50,000 unit) 02/05/2021 12:00:00 AM EDT capsule 4 TAKE ONE CAPSULE BY MOUTH WITH A MEAL ONCE A WEEK TAKE ONE CAPSULE BY MOUTH WITH A MEAL ONCE A WEEK SOLD: 02/08/2021 [facility] Escitalopram 20 MG Oral Tablet ESCITALOPRAM OXALATE 02/03/2021 1 2:00:00 AM EDT tablet 30 TAKE ONE TABLET BY MOUTH EVERY D AY TAKE ONE TABLET BY MOUTH EVERY DAY SOLD: 02/04/2021 [facility] 40 mg 02/03/2021 12:00:00 AM EDT tablet 30 TAKE ONE TABLET BY MOUTH EVERY MORNING TAKE ONE TABLET BY MOUTH EVERY MORNING SOLD: 02/04/2021 [facility] 40 mg 02/03/2021 12:00:00 AM EDT tablet 30 TAKE ONE TABLET BY MOUTH EVERY MORNING TAKE ONE TABLET BY MOUTH EVERY MORNING SOLD: 03/23/2021 [facility] 20 mg 02/03/2021 12:00:00 AM EDT capsule,delayed release (DR/EC) 30 TAKE ONE CAPSULE BY MOUTH EVERY DAY NEEDED TAKE ONE CAPSULE BY MOUTH EVERY DAY NEEDED SOLD: 02/04/2021 [facility] Wrist Splint/Cock-Up/Right M - Wrist Splint/Cock-Up/Right M - 02/02/2021 12:00:00 AM EDT active Wrist Sp lint/Cock-Up/Right M - eCW1 ([facility]) Wrist Splint/Cock-Up/Right M - Wrist Splint/Cock-Up/Right M - 02/02/2021 12:00:00 AM EDT active Wrist Sp lint/Cock-Up/Right M - eCW1 ([facility]) Wrist Splint/Cock-Up/Right M - Wrist Splint/Cock-Up/Right M - 02/02/2021 12:00:00 AM EDT active Wrist Sp lint/Cock-Up/Right M - eCW1 ([facility]) 200 mcg 09/21/2020 12:00:00 AM EDT tablet 30 TAKE ONE TABLET BY MOUTH IN THE MORNING ON AN EMPTY STOMACH WITH 25MCG TABLET TAKE ONE TABLET BY MOUTH IN THE MORNING ON AN EMPTY STOMACH WITH 25MCG TABLET SOLD: 11/30/2020 [facility] 200 mcg 09/21/2020 12:00:00 AM EDT tablet 30 TAKE ONE TABLET BY MOUTH IN THE MORNING ON AN EMPTY STOMACH WITH 25MCG TABLET TAKE ONE TABLET BY MOUTH IN THE MORNING ON AN EMPTY STOMACH WITH 25MCG TABLET SOLD: 10/31/2020 [facility] 40 mg 09/21/2020 12:00:00 AM EDT tablet 30 TAKE ONE TABLET BY MOUTH ONCE A DAY IN THE IN THE MORNING TAKE ONE TABLET BY MOUTH ONCE A DAY IN T HE IN THE MORNING SOLD: 11/30/2020 [facility] 40 mg 09/21/2020 12:00:00 AM EDT tablet 30 TAKE ONE TABLET BY MOUTH ONCE A DAY IN THE IN THE MORNING TAKE ONE TABLET BY MOUTH ONCE A DAY IN T HE IN THE MORNING SOLD: 10/31/2020 [facility] 200 mcg 09/21/2020 12:00:00 AM EDT tablet 30 TAKE ONE TABLET BY MOUTH IN THE MORNING ON AN EMPTY STOMACH WITH 25MCG TABLET TAKE ONE TABLET BY MOUTH IN THE MORNING ON AN EMPTY STOMACH WITH 25MCG TABLET SOLD: 03/23/2021 [facility] 200 mcg 09/21/2020 12:00:00 AM EDT tablet 30 TAKE ONE TABLET BY MOUTH IN THE MORNING ON AN EMPTY STOMACH WITH 25MCG TABLET TAKE ONE TABLET BY MOUTH IN THE MORNING ON AN EMPTY STOMACH WITH 25MCG TABLET SOLD: 09/23/2020 [facility] 200 mcg 09/21/2020 12:00:00 AM EDT tablet 30 TAKE ONE TABLET BY MOUTH IN THE MORNING ON AN EMPTY STOMACH WITH 25MCG TABLET TAKE ONE TABLET BY MOUTH IN THE MORNING ON AN EMPTY STOMACH WITH 25MCG TABLET SOLD: 02/04/2021 [facility] 200 mcg 09/21/2020 12:00:00 AM EDT tablet 30 TAKE ONE TABLET BY MOUTH IN THE MORNING ON AN EMPTY STOMACH WITH 25MCG TABLET TAKE ONE TABLET BY MOUTH IN THE MORNING ON AN EMPTY STOMACH WITH 25MCG TABLET SOLD: 01/03/2021 [facility] 40 mg 09/21/2020 12:00:00 AM EDT tablet 30 TAKE ONE TABLET BY MOUTH ONCE A DAY IN THE IN THE MORNING TAKE ONE TABLET BY MOUTH ONCE A DAY IN T HE IN THE MORNING SOLD: 09/23/2020 [facility] 40 mg 04/06/2020 12:00:00 AM EST tablet 30 TAKE ONE TABLET BY MOUTH ONCE A DAY IN THE MORNING TAKE ONE TABLET BY MOUTH ONCE A DAY IN THE MORNING DENZEL [facility] 200 mcg 04/06/2020 12:00:00 AM EST tablet 30 TAKE ONE TABLET BY MOUTH ON AN EMPTY STOMACH IN THE MORING ONCE A DAY WITH A 25MCG TABLET TAKE ONE TABLET BY MOUTH ON AN EMPTY STOMACH IN THE MORING ONCE A DAY WITH A 25MCG TABLET SOLD: 08/23/2020 [facility] 40 mg 04/06/2020 12:00:00 AM EST tablet 30 TAKE ONE TABLET BY MOUTH ONCE A DAY IN THE MORNING TAKE ONE TABLET BY MOUTH ONCE A DAY IN THE MORNING DENZEL [facility] 200 mcg 04/06/2020 12:00:00 AM EST tablet 30 TAKE ONE TABLET BY MOUTH ON AN EMPTY STOMACH IN THE MORING ONCE A DAY WITH A 25MCG TABLET TAKE ONE TABLET BY MOUTH ON AN EMPTY STOMACH IN THE MORING ONCE A DAY WITH A 25MCG TABLET SOLD: 04/15/2020 [facility] 40 mg 04/06/2020 12:00:00 AM EST tablet 30 TAKE ONE TABLET BY MOUTH ONCE A DAY IN THE MORNING TAKE ONE TABLET BY MOUTH ONCE A DAY IN THE MORNING DENZEL [facility] Escitalopram 20 MG Oral Tablet ESCITALOPRAM OXALATE 04/06/2020 1 2:00:00 AM EST tablet 30 TAKE ONE TABLET BY MOUTH ONCE A DAY TAKE ONE TABLET BY MOUTH ONCE A DAY SOLD: 07/16/2020 [facility] 200 mcg 04/06/2020 12:00:00 AM EST tablet 30 TAKE ONE TABLET BY MOUTH ON AN EMPTY STOMACH IN THE MORING ONCE A DAY WITH A 25MCG TABLET TAKE ONE TABLET BY MOUTH ON AN EMPTY STOMACH IN THE MORING ONCE A DAY WITH A 25MCG TABLET SOLD: 05/31/2020 [facility] 40 mg 04/06/2020 12:00:00 AM EST tablet 30 TAKE ONE TABLET BY MOUTH ONCE A DAY IN THE MORNING TAKE ONE TABLET BY MOUTH ONCE A DAY IN THE MORNING DENZEL [facility] 200 mcg 04/06/2020 12:00:00 AM EST tablet 30 TAKE ONE TABLET BY MOUTH ON AN EMPTY STOMACH IN THE MORING ONCE A DAY WITH A 25MCG TABLET TAKE ONE TABLET BY MOUTH ON AN EMPTY STOMACH IN THE MORING ONCE A DAY WITH A 25MCG TABLET SOLD: 07/16/2020 [facility] Escitalopram 20 MG Oral Tablet ESCITALOPRAM OXALATE 04/06/2020 1 2:00:00 AM EST tablet 30 TAKE ONE TABLET BY MOUTH ONCE A DAY TAKE ONE TABLET BY MOUTH ONCE A DAY SOLD: 05/31/2020 [facility] Escitalopram 20 MG Oral Tablet ESCITALOPRAM OXALATE 04/06/2020 1 2:00:00 AM EST tablet 30 TAKE ONE TABLET BY MOUTH ONCE A DAY TAKE ONE TABLET BY MOUTH ONCE A DAY SOLD: 04/15/2020 [facility] 200 mcg 11/04/2019 12:00:00 AM EDT tablet 30 TAKE ONE TABLET BY MOUTH EVERY MORNING ON AN EMPTY STOMACH TAKE ONE TABLET BY MOUTH EVERY MORNING O N AN EMPTY STOMACH SOLD: 03/14/2020 [facility] Insurance Providers Payer name Policy type / Coverage type Policy ID Covered alliance party ID Covered alliance party's relationship to cisneros Policy [place] Plan Information [facility] COMMUNITY PLAN [facility] [id number] SP [id number] [facility] PLAN [facility] [id number] SP [id number] [place] PPO 302/307 [id number] [place] BCBS B [id number] P SWT [id number] [facility] COMMUNITY PLAN [facility] [id number] SP [id number] ANS-Medicaid [id number] [facility] COMMUNITY [facility] [id number] ANSI-Medicaid [id number] ANSI-Medicaid [id number] ANSI-Medicaid [id number] ANSI-Medicaid [id number] ANSI-Medicaid [id number] ANSI-Medicaid [id number] ANSI-Medicaid [id number] ANSI-Medicaid [id number] ANSI-Medicaid [id number] [facility] Health Maintenance Organization (O) [id number] [facility] Health Maintenance Organization (HMO) [id number] Self [id number] [facility] Health Maintenance Organization (HMO) [id number] Self 9 [id number] [employer] [place] PPO 302/[id number] SP [id number] SELF PAY UNAVAILABLE [facility]A BLE [facility] [id number] SP [id number] Problems, Conditions, and Diagnoses Code Display Name Description Problem Type Effective Dates Data Source(s) 01155688 Carpal tunnel syndrome Carpal tunnel syndrome Problem 02/28/2021 12:00:00 AM EDT MEDKAROLINA ([facility] ) 136717044 Numbness of hand Numbness of hand Problem 02/28/2021 12 :00:00 AM EDT MEDENT ([facility] ) 80122491 Hand pain Hand pain Problem 02/28/2021 12:00:00 AM ED T MEDKAROLINA ([facility], ) [id number] Essential hypertension Essential hypertension Problem 02/12/2021 12:00:00 AM EDT MEDKAROLINA ([facility], ) G56.01 [id number] Carpal tunnel syndrome, right Problem 02/02/2021 12:00:00 AM EDT eCW1 ([facility]) Surgeries/Procedures Procedure Description Date Indications Data Source(s) OFFICE OUTPATIENT VISIT 25 MINUTES 03/16/2021 12:00:00 AM EDT MEDENT ([facility], ) Needle electromyography, each extremity, with related paraspinal areas, when performed, done with nerve conduction, amplitude and latency/velocity study; complete, five or more muscles studied, innervated by three or more nerves or four or more spinal levels (list separately in addition to the code for primary procedure). 03/01/2021 12:00:00 AM EDT MILTON Coughlin ([facility], ) Needle Electromyography Non Extremity Done With Nerve Conduc tion 03/01/2021 12:00:00 AM EDT MEDENT ([facility] ) Nerve Conduction 9-10 Studies 03/01/2021 12:00:00 AM E DT MEDENT ([facility], ) OFFICE OUTPATIENT NEW 30 MINUTES 02/12/2021 12:00:00 A M EDT MEDENT ([facility], ) Immunization: Flublok Quadrivalent (18 years & older) 0.5mL IM (Influenza) 04/05/2020 12:00:00 AM EST eCW1 ([facility]) Results ID Date Data Source VITAMIN D 25-HYDROXY 02/02/2021 12:00:00 AM EDT eCW1 ([facility]) Name Value Range Interpretation Code Description Data Raysa rce(s) Supporting Document(s) 11.2 30.0-100.0 TOTAL 25(OH) VITAMIN D eC W1 ([facility]) ID Date Data Source TSH 02/02/2021 12:00:00 AM EDT eCW1 ([facility]) Name Value Range Interpretation Code Description Data Raysa rce(s) Supporting Document(s) 0.037 0.358-3.740 THYROID STIMULATING HORM ONE eCW1 ([facility]) ID Date Data Source [id number] 02/02/2021 12:00:00 AM EDT eCW1 ([facility]) Name Value Range Interpretation Code Description Data Raysa rce(s) Supporting Document(s) Hemoglobin A1c/Hemoglobin.total in Blood 5.6 HEMOGLOBIN A1c eCW1 ([facility]) ID Date Data Source FREE T4 02/02/2021 12:00:00 AM EDT eCW1 ([facility]) Name Value Range Interpretation Code Description Data Raysa rce(s) Supporting Document(s) 1.33 0.76-1.46 FREE T4 eCW1 ([facility]) ID Date Data Source Comprehensive Metabolic Profile (CMP) 02/02/2021 12:00:00 AM EDT eCW1 ([facility]) Name Value Range Interpretation Code Description Data Raysa rce(s) Supporting Document(s) 108 70-100 GLUCOSE, FASTING eCW1 ([facility]) 10 7-18 BLOOD UREA NITROGEN eCW1 ([facility]) 140 136-145 SODIUM LEVEL eCW1 ([facility]) 0.90 0.55-1.30 CREATININE FOR GFR eCW1 ([facility] hospital) > 60.0 >58 GLOMERULAR FILTRATION RATE eCW 1 ([facility]) 4.3 3.5-5.1 POTASSIUM SERUM eCW1 ([facility]) 27 21-32 CARBON DIOXIDE LEVEL eCW1 ([facility]) 108 98-107 CHLORIDE LEVEL eCW1 ([facility]) 26 12-78 ALT/SGPT eCW1 ([facility]) 13 7-37 AST/SGOT eCW1 ([facility]) 8.8 8.5-10.1 CALCIUM LEVEL eCW1 ([facility]) 6.4 6.4-8.2 TOTAL PROTEIN eCW1 ([facility]) 67 45-117 ALKALINE PHOSPHATASE eCW1 ([facility]) 0.3 0.2-1.0 BILIRUBIN,TOTAL eCW1 ([facility]) 3.2 3.2-5.2 ALBUMIN eCW1 ([facility]) 1.0 1.2-2.2 ALBUMIN/GLOBULIN RATIO eCW1 ([facility]) Procedure Social History Code Duration Value Status Description Data Source(s ) Smoking 02/12/2021 12:00:00 AM EDT Patient has never smoked co mpleted Patient has never smoked MEDENT ([facility]) Smoking 02/02/2021 12:00:00 AM EDT Never Smoker completed Never S moker eCW1 ([facility]) Smoking 02/02/2021 12:00:00 AM EDT Never Smoker completed Never S moker eCW1 ([facility]) Smoking 02/02/2021 12:00:00 AM EDT Never Smoker completed Never S moker eCW1 ([facility]) Smoking 04/05/2020 12:00:00 AM EST Never Smoker completed Never S moker eCW1 ([facility]) Smoking 04/05/2020 12:00:00 AM EST Never Smoker completed Never S moker eCW1 ([facility]) Smoking 04/05/2020 12:00:00 AM EST Never Smoker completed Never S moker eCW1 ([facility]) Vital Signs ID Date Data Source UNK Name Value Range Interpretation Code Description Data Source(s) Body temperature 97.6 [degF] 97.6 [degF] MEDENT ([facility]) Body mass index (BMI) [Ratio] 40.9 kg/m2 40.9 k g/m2 MEDENT ([facility]) [place] body weight 115 [lb_av] 115 [lb_av] MEDEN T ([facility]) Body weight 231.00 [lb_av] 231.00 [lb_av] MEDEN T ([facility]) Systolic blood pressure 120 mm[Hg] 120 mm[Hg] M EDENT ([facility]) Diastolic blood pressure 80 mm[Hg] 80 mm[Hg] MEDENT ([facility]) Heart rate 72 /min 72 /min MEDENT ([facility]) Body height 63 [in_i] 63 [in_i] MEDENT ([facility]) 5'3" Body temperature 97.8 [degF] 97.8 [degF] MEDENT ([facility]) Body weight 222 [lb_av] 222 [lb_av] eCW1 ([facility]) Body height 63.75 [in_i] 63.75 [in_i] eCW1 ([facility]) Body mass index (BMI) [Ratio] 38.40 kg/m2 38.40 kg/m2 eCW1 ([facility]) Heart rate 84 /min 84 /min eCW1 ([facility]) Respiratory rate 20 /min 20 /min eCW1 ([facility]) Body temperature 97.8 [degF] 97.8 [degF] eCW1 ( [facility]) Systolic blood pressure 124 mm[Hg] 124 mm[Hg] e CW1 ([facility]) Diastolic blood pressure 80 mm[Hg] 80 mm[Hg] eCW1 ([facility]) Body weight 223 [lb_av] 223 [lb_av] eCW1 ([facility]) Body height 63.75 [in_i] 63.75 [in_i] eCW1 ([facility]) Body mass index (BMI) [Ratio] 38.57 kg/m2 38.57 kg/m2 eCW1 ([facility]) Heart rate 88 /min 88 /min eCW1 ([facility]) Respiratory rate 18 /min 18 /min eCW1 ([facility]) Body temperature 97.6 [degF] 97.6 [degF] eCW1 ( [facility]) Systolic blood pressure 124 mm[Hg] 124 mm[Hg] e CW1 ([facility]) Diastolic blood pressure 80 mm[Hg] 80 mm[Hg] eCW1 ([facility]) Patient Treatment Plan of Care Planned Activity Planned Date Details Description Data Source (s) Levothyroxine Sodium 0.175 MG Oral Tablet 02/06/2021 12:00:00 AM ED T eCW1 ([facility]) Levothyroxine Sodium 0.175 MG Oral Tablet 02/06/2021 12:00:00 AM ED T eCW1 ([facility]) Levothyroxine Sodium 0.175 MG Oral Tablet 02/06/2021 12:00:00 AM ED T eCW1 ([facility]) Wrist Splint/Cock-Up/Right M - 02/02/2021 12:00:00 AM EDT eCW1 ([facility]) Wrist Splint/Cock-Up/Right M - 02/02/2021 12:00:00 AM EDT eCW1 ([facility]) Wrist Splint/Cock-Up/Right M - 02/02/2021 12:00:00 AM EDT eCW1 ([facility])
--- OUTSIDE RECORDS SUMMARY | 2021-04-18 10:34 | CCD ---
Author Author [facility] Organization [facility] Address Unknown Phone Unavailable Care Team Providers Care Software Project Manager Name Role Phone Karen Vang [facility] PROBLEMS Type Condition ICD9-CM Code FIG25-HA Code Onset Dates Condition S tatus W/U Status Risk SNOMED Code Notes Problem Mixed hyperlipidemia E78.2 Active confirmed 608045732 Problem Dysmetabolic syndrome X E88.81 Active confirmed 968887402 Problem Anxiety state F41.1 Active confirmed 048067 003 Problem Dysthymic disorder F34.1 Active confirmed 7 8464194 Problem Acquired hypothyroidism E03.9 Active confirmed 369230779 Problem Non morbid obesity due to excess calories E66.09 Active confirmed 085229563 Problem Change in pigmented skin lesion of face D23.30 Active confirmed 283240465 Problem Vitamin D deficiency E55.9 Active confirmed 70464720 Problem BMI 37.0-37.9, adult Z68.37 Active confirmed 434352535 Problem Hypertension, uncontrolled I10 Active confirmed 97211957 Problem Acid indigestion K30 Active confirmed 162 545911 Problem Carpal tunnel syndrome, right G56.01 Active co nfirmed 392998764645641 Problem Status post bariatric surgery Z98.84 Active confirm ed 818579967 Problem Obesity (BMI 30-39.9) E66.9 Active confirmed 957784511 Problem Nocturnal oxygen desaturation G47.34 Active confirm ed 370126583 Problem Hypertensive emergency without congestive heart failure I16.1 Active confirmed 549837570323609 Problem Essential hypertension I10 Active confirmed 78727352 ALLERGIES No Known Allergies ENCOUNTERS from 1980 to 2021-02-06 Encounter Location Date Provider Diagnosis [address] [phone] [place] [address] Jan, Karen Vang IMMUNIZATIONS Vaccine Route Administration Date Status Influenza 18 yrs & older Flublok IM Intramuscular Apr 05, 2020 Administered Influenza 6mo & up Fluzone IM Intramuscular Jun 05, 2017 Admi nistered Influenza 6mo & up Fluzone IM Intramuscular Jul 12, 2014 Admi nistered Influenza 6mo & up Fluzone IM Intramuscular May 06, 2013 Admi nistered Influenza 6mo & up Fluzone IM Intramuscular Mar 13, 2010 Admi nistered SOCIAL HISTORY Tobacco Use: Social History Observation Description Date Details (start date - stop date) Never Smoker Sex Assigned At : Social History Observation Description Sex Assigned At Unknown Education: Question Answer Notes Level of Education: Not Finished College Audit Question Answer Notes Total Score: 1 Interpretation: Alcohol Education Language: Question Answer Notes Languages spoken: Armenian Yazidism: Question Answer Notes Yazidism 33 None No islam beliefs that would impact health care. Sexual Hx: Question Answer Notes Had sex in the last 12 months (vaginal, oral, or anal)? Yes Have you ever had an STD? No with Men only Use protection? No Drug and Alcohol Question Answer Notes Total Score: 0 Interpretation: No problems reported Alcohol Screening: Question Answer Notes Did you have a drink containing alcohol in the past year? Ye s Points 2 Interpretation Negative How often did you have six or more drinks on one occas ion in the past year? Never (0 points) How many drinks did you have on a typica l day when you were drinking in the past year? 3 or 4 (1 point) How often did you have a drink containing alcohol in t he past year? Monthly or less (1 point) BMI Care Goal Follow-Up Question Answer Notes Above Normal BMI Follow-Up Giving encouragement to exercise Tobacco Use: Question Answer Notes Are you a: never smoker REASON FOR REFERRAL No Information VITAL SIGNS No information MEDICATIONS Medication SIG (Take, Route, Frequency, Duration) Notes Start Da te End Date Status Drisdol 57981 UNIT 1 capsule with meal Orally Once a week for 30 day( s) Active Vitamin B-12 1000 MCG 1 tablet Sublingual Once a day Not-Taking Wrist Splint/Cock-Up/Right M - as directed topically D X: G56.01 Daily for 90 day(s) Jan, Active Vitamin D 2000 UNIT 1 tablet with food Orally Once a day Active Calcium 600 600 MG 1 tablet with food Orally daily Not-Taking Excedrin Migraine 250-250-65 MG 2 tablets Orally Once a day stop ped per patient Not-Taking Multivitamins 4 tabs Orally once a day Not-Taking Lisinopril 40 MG 1 tablet Orally Once a day in AM for 30 days Active Escitalopram Oxalate 20 MG 1 tablet Orally Once a day for 30 days Active Levothyroxine Sodium 175 MCG 1 tablet in the morning o n an empty stomach Orally Once a day for 30 day(s) Jan, Active Omeprazole 20 MG 1 capsule Orally Once a day as needed for 30 Days Active PROCEDURES No Information RESULTS No Results REASON FOR VISIT referral MEDICAL (GENERAL) HISTORY Type Description Date Medical History Hypertension Medical History Hypothyroidism, s/p ablation 2005 Medical History hyperlipidemia, mixed Medical History vitamin D deficiency Medical History depression Medical History Anxiety Medical History Obesity Surgical History tubal ligation Surgical History C sections Surgical History cholecystectomy 09/08 Surgical History radioactive iodine tx 05/07 Surgical History left breast lumpectomy - benign 07/05 Surgical History gastric bypass, chrissy-n-Y - dr Clemente 10-1 1 Surgical History hysterectomy abdominal - Dr. Villalba 8-10 Hospitalization History surgery related only Goals Section No Information Health Concerns No Information MEDICAL EQUIPMENT No Information MENTAL STATUS No Information FUNCTIONAL STATUS No Information ASSESSMENTS No Information PLAN OF TREATMENT Medication Medication Name Sig Start Date Stop Date Drisdol 71069 UNIT 1 capsule with meal Orally Once a week for 30 day(s) Escitalopram Oxalate 20 MG 1 tablet Orally Once a day for 30 day s Levothyroxine Sodium 175 MCG 1 tablet in the morning o n an empty stomach Orally Once a day for 30 day(s) Jan, Lisinopril 40 MG 1 tablet Orally Once a day in AM for 30 days Vitamin D 2000 UNIT 1 tablet with food Orally Once a day Omeprazole 20 MG 1 capsule Orally Once a day as needed for 30 Da ys Wrist Splint/Cock-Up/Right M - as directed topically D X: G56.01 Daily for 90 day(s) Jan, Next Appt Details Provider Name:Altagracia Whatley, 09:00:00 AM, [address] [facility], , [place], [address], Insurance Providers Payer Name Payer Address Payer Phone Insured Name Patient Relati onship to Insured Coverage Start Date Coverage End Date [employer] COMMUNITY PLAN [facility] [address] [facility] [phone] SAYRA DEWITT self
--- OUTSIDE RECORDS SUMMARY | 2021-04-18 10:34 | CCD ---
Author Author [facility] Organization [facility] Address Unknown Phone Unavailable Care Team Providers Care Funnel Coater Name Role Phone Karen Vang [facility] PROBLEMS Type Condition ICD9-CM Code VOH12-QW Code Onset Dates Condition S tatus W/U Status Risk SNOMED Code Notes Problem Mixed hyperlipidemia E78.2 Active confirmed 993889728 Problem Dysmetabolic syndrome X E88.81 Active confirmed 423322618 Problem Anxiety state F41.1 Active confirmed 903516 003 Problem Dysthymic disorder F34.1 Active confirmed 7 3709214 Problem Acquired hypothyroidism E03.9 Active confirmed 988928982 Problem Non morbid obesity due to excess calories E66.09 Active confirmed 900381366 Problem Change in pigmented skin lesion of face D23.30 Active confirmed 585646565 Problem Vitamin D deficiency E55.9 Active confirmed 20006614 Problem BMI 37.0-37.9, adult Z68.37 Active confirmed 959436851 Problem Hypertension, uncontrolled I10 Active confirmed 45899342 Problem Acid indigestion K30 Active confirmed 162 730271 Problem Carpal tunnel syndrome, right G56.01 Active co nfirmed 886261056299842 Problem Status post bariatric surgery Z98.84 Active confirm ed 067482267 Problem Obesity (BMI 30-39.9) E66.9 Active confirmed 409746254 Problem Nocturnal oxygen desaturation G47.34 Active confirm ed 369130279 Problem Hypertensive emergency without congestive heart failure I16.1 Active confirmed 239490403727724 Problem Essential hypertension I10 Active confirmed 86172067 ALLERGIES No Known Allergies ENCOUNTERS from 1978 to 2021-02-07 Encounter Location Date Provider Diagnosis [address] [phone] [place] [address] Jan, Karen Vang Essential hypertension I10 ; Acquired hypothyroidism E03.9 ; Carpal tunnel syndrome, right G56.01 ; Vitamin D deficiency E55.9 ; Dysmetabolic syndrome X E88.81 ; Dysthymic disorder F34.1 and Acid indigestion K30 IMMUNIZATIONS Vaccine Route Administration Date Status Influenza [...] Education Language: Question Answer Notes Languages spoken: Vietnamese Jain: Question Answer Notes Jain 33 None No religion beliefs that would impact health care. Sexual [...] you a: never smoker REASON FOR REFERRAL from 1978 to 2021-02-07 Reason please eval for worsening ri ght carpl tunnel (splint ordered, unable to take NSAIDs) Diagnosis 1 Carpal tunnel syndrome, righ t (G56.01) Referral Organization [facility] [place] Referring Provider First Name Karen Referring Provider Last Name Taj Referring Provider Specialty Family Medicine Referred Provider SMP,Ortho Lyons Referred Provider Specialty Orthopedic Surgery Referral Priority Routine General Notes Ivette Vazquez 02/02/2021 5:05:4 8 PM > Cyndie High 02/06/2021 11:55:26 AM > [facility] patient's plan does not require a referral, form faxed VITAL SIGNS Weight 222 lbs Jan, Height 63.75 in Jan, BMI 38.40 kg/m2 Jan, Heart Rate 84 /min Jan, Respiratory Rate 20 /min Jan, Temperature 97.8 degrees Fahrenheit Jan, Oximetry 100 Jan, Blood pressure systolic 124 mm Hg Jan, Blood pressure diastolic 80 mm Hg Jan, MEDICATIONS Medication SIG (Take, Route, Frequency, Duration) Notes Start Da te End Date Status Drisdol 86398 UNIT 1 capsule with meal Orally Once [...] 30 Days Active PROCEDURES No Information RESULTS Component Value Reference Range Comprehensive Metabolic Profile (CMP) Reviewed date:02/05/2021 15:19:06 Interpretation: Performing Lab:[facility], [facility] [address] [facility] [id number] , ,[place] [address] GLUCOSE, FASTING 108 70-100 BLOOD UREA NITROGEN 10 7-18 CREATININE FOR GFR 0.90 0.55-1.30 GLOMERULAR FILTRATION RATE > 60.0 >58 SODIUM LEVEL 140 136-145 POTASSIUM SERUM 4.3 3.5-5.1 CHLORIDE LEVEL 108 98-107 CARBON DIOXIDE LEVEL 27 21-32 CALCIUM LEVEL 8.8 8.5-10.1 AST/SGOT 13 7-37 ALT/SGPT 26 12-78 ALKALINE PHOSPHATASE 67 45-117 BILIRUBIN,TOTAL 0.3 0.2-1.0 TOTAL PROTEIN 6.4 6.4-8.2 ALBUMIN 3.2 3.2-5.2 ALBUMIN/GLOBULIN RATIO 1.0 1.2-2.2 FREE T4 Reviewed date:02/05/2021 15:19:06 Interpretation: Performing Lab:[facility] [address] [place] [address] , ,[place] [address] FREE T4 1.33 0.76-1.46 HEMOGLOBIN A1c Reviewed date:02/05/2021 15:19:06 Interpretation: Performing Lab:[facility] [address] [place] [address] , ,[place] [address] HEMOGLOBIN A1c 5.6 ESTIMATED AVERAGE GLUCOSE 114 60-110 TSH Reviewed date:02/05/2021 15:19:06 Interpretation:Abnormal Performing Lab:[facility] [address] [facility] [address] , ,[place] [address] THYROID STIMULATING HORMONE 0.037 0.358-3.740 VITAMIN D 25-HYDROXY Reviewed date:02/05/2021 15:19:06 Interpretation: Performing Lab:[facility] [address] [place] [address] , ,[place] [address] TOTAL 25(OH) VITAMIN D 11.2 30.0-100.0 REASON FOR VISIT r/s follow up after labs MEDICAL (GENERAL) HISTORY Type Description Date Medical [...] No Information FUNCTIONAL STATUS No Information ASSESSMENTS Encounter Date Diagnosis Assessment Notes Treatment Notes Treatm ent Clinical Notes Jan, Essential hypertension (ICD-10 - I10) BP good, continue current med, check labs Jan, Acquired hypothyroidism (ICD-10 - E03.9) labs due, continue current dose pending labs Jan, Carpal tunnel syndrome, right (ICD-10 - G56.01) start splint at night and refer for ortho eval Jan, Vitamin D deficiency (ICD-10 - E55.9) due for labs Jan, Dysmetabolic syndrome X (ICD-10 - E88.81) check labs Jan, Dysthymic disorder (ICD-10 - F34.1) stable on current dose Jan, Acid indigestion (ICD-10 - K30) diet reviewed PLAN OF TREATMENT Medication Medication Name Sig Start Date Stop Date Drisdol 74112 UNIT 1 capsule with meal Orally Once [...] X: G56.01 Daily for 90 day(s) Jan, Treatment Notes Assessment Notes Clinical Notes Essential hypertension BP good, continue current med, check labs Acquired hypothyroidism labs due, continue current dose pend ing labs Carpal tunnel syndrome, right start splint at night and refe r for ortho eval Vitamin D deficiency due for labs Dysmetabolic syndrome X check labs Dysthymic disorder stable on current dose Acid indigestion diet reviewed Treatment Notes Test Name Order Date FREE T4 & TSH PANEL 2021-02-02 Referrals Referral Date Details please eval for worsening ri ght carpl tunnel (splint ordered, unable to take NSAIDs), Ortho Kimberlee SMP Next Appt Details 3 Months - transfer care Reason:f/up Provider Name:Altagracia Whatley, 09:00:00 AM, [address] [facility], , [place], [address], Follow Up:3 Months - transfer caref/up Insurance Providers Payer Name Payer Address Payer Phone Insured Name Patient Relati onship to Insured Coverage Start Date Coverage End Date [facility] COMMUNITY PLAN [facility] [address] [facility] [address] SAYRA DEWITT JIM self
--- OUTSIDE RECORDS SUMMARY | 2021-04-18 10:34 | CCD ---
Author Author [facility] Organization [facility] Address Unknown Phone Unavailable Care Team Providers Care Belt Knife Feeder Name Role Phone Karen Vang [facility] PROBLEMS Type Condition ICD9-CM Code TQQ99-CP Code Onset Dates Condition S tatus W/U Status Risk SNOMED Code Notes Problem Mixed hyperlipidemia E78.2 Active confirmed 797378204 Problem Dysmetabolic syndrome X E88.81 Active confirmed 908268083 Problem Anxiety state F41.1 Active confirmed 795504 003 Problem Dysthymic disorder F34.1 Active confirmed 7 1195567 Problem Acquired hypothyroidism E03.9 Active confirmed 676234338 Problem Non morbid obesity due to excess calories E66.09 Active confirmed 283403672 Problem Change in pigmented skin lesion of face D23.30 Active confirmed 902467553 Problem Vitamin D deficiency E55.9 Active confirmed 84548775 Problem BMI 37.0-37.9, adult Z68.37 Active confirmed 033848111 Problem Hypertension, uncontrolled I10 Active confirmed 50484113 Problem Acid indigestion K30 Active confirmed 162 867127 Problem Carpal tunnel syndrome, right G56.01 Active co nfirmed 523999832615859 Problem Status post bariatric surgery Z98.84 Active confirm ed 998887650 Problem Obesity (BMI 30-39.9) E66.9 Active confirmed 604609784 Problem Nocturnal oxygen desaturation G47.34 Active confirm ed 523378999 Problem Hypertensive emergency without congestive heart failure I16.1 Active confirmed 194879746819874 Problem Essential hypertension I10 Active confirmed 21496008 ALLERGIES No Known Allergies ENCOUNTERS from 1978 to 2021-02-12 Encounter Location Date Provider Diagnosis [address] [phone] [place] [address] Jan, Karen Vang Acquired hypothyroidism E03. 9 and Vitamin D deficiency E55.9 IMMUNIZATIONS Vaccine Route Administration Date Status Influenza [...] Education Language: Question Answer Notes Languages spoken: Telugu Gnosticism: Question Answer Notes Gnosticism 33 None No confucianist beliefs that would impact health care. Sexual [...] Start Da te End Date Status Drisdol 62839 UNIT 1 capsule with meal Orally Once [...] Information RESULTS No Results REASON FOR VISIT labs MEDICAL (GENERAL) HISTORY Type Description Date [...] Treatment Notes Treatm ent Clinical Notes Jan, Acquired hypothyroidism (ICD-10 - E03.9) Jan, Vitamin D deficiency (ICD-10 - E55.9) PLAN OF TREATMENT Medication Medication Name Sig Start Date Stop Date Drisdol 09273 UNIT 1 capsule with meal Orally Once [...] X: G56.01 Daily for 90 day(s) Jan, Future Test Test Name Order Date TSH 20210430 VITAMIN D 25-HYDROXY 20210430 Next Appt Details Provider Name:Altagracia Whatley, 09:00:00 AM, [address] [facility], , [place], [address], Insurance Providers Payer Name Payer Address Payer Phone Insured Name Patient Relati onship to Insured Coverage Start Date Coverage End Date [facility] COMMUNITY PLAN [facility] [address] [facility] [address] SAYRA DEWITT JIM self
--- OUTSIDE RECORDS SUMMARY | 2021-04-18 10:34 | CCD ---
Continuity of Care Document (CCD) Created on: 02/12/2021 Neli Winston External Reference #: [id number] : [id number] Sex: Female Author Author Neli ROLLE DO Organization Unknown Address [address] [place] [address], [place] [address] Phone [phone] Care Team Providers Care Gifts Officer Name Role Phone Taj Karen Robbin AUTM [phone] Problems Active Problems Provider Date Essential hypertension [...] Mouth Every Day Unknown Vitamin D3 1.25mg (46599 Ut) Capsu les 1 time weekly Unknown Immunizations Description No Information Available Vital Signs Date Vital Result Comment 02/12/2021 10:01am Body Temperature 97.8 F Results Description No Information Available Procedures Description No Information Available Medical Devices Description No Information Available Encounters Description No Information Available Assessments Date Code Description Provider 02/12/2021 G56.01 Carpal tunnel syndrome, right up per limb Jaciel Rolle DO Plan of Treatment 02/12/2021 - Jaciel Rolle DO* G56.01 Carpal tunnel syndrome, right upper limb* Referral:* [facility], Functional Status Description No Information Available Mental Status Description No Information Available Referrals Refer to Reason for Referral Status Appt Date [facility] Right carpal tunnel syndrome Created
[2021-04-18] MEDS ORDERED: BUPIVACAINE/EPIN 0.25% 30 ML VIAL As Ordered ONE (15:46)
[2021-04-18] MEDS ORDERED: MIDAZOLAM INJ 2MG/2ML VIAL (J2250 PER 1MG) As Ordered ONE (15:48)
[2021-04-18] MEDS ORDERED: propofoL 200 MG/20 ML VIAL As Ordered ONE (15:48)
[2021-04-18] MEDS ORDERED: ETOMIDATE INJ 20MG/10ML VIAL As Ordered ONE (15:48)
[2021-04-18] MEDS ORDERED: fentaNYL 100 MCG/2 ML INJECTION (J3010) As Ordered ONE (15:48)
[2021-04-18] MEDS ORDERED: ONDANSETRON 4MG/2ML VIAL As Ordered ONE (16:01)
[2021-04-18] MEDS ORDERED: dexameTHASONE 4 MG/ML 1ML VIAL (J1100 PER 1MG) As Ordered ONE (16:01)
[2021-04-18] MEDS ORDERED: ePHEDrine SULFATE 25 MG/5 ML(5MG/ML) SYRINGE As Ordered ONE (16:15)
--- NOTE | 2021-04-18 16:41 | ROOPDOC ---
[facility] Report Of Operation Report of Operation DATE OF PROCEDURE: 04/18/21 PREPROCEDURE DIAGNOSES: [Right carpal syndrome POSTPROCEDURE DIAGNOSES: [Right carpal tunnel syndrome]. PROCEDURE PERFORMED: [Right arthroscopic carpal tunnel release]. SURGEON: [Jaciel barrera]MD TERADATA DEVELOPER: , ANESTHESIA: . ESTIMATED BLOOD LOSS: Approximately [none] mL. COMPLICATIONS: [None]. SPECIMENS REMOVED: PROCEDURE NOTE: . DESCRIPTION OF PROCEDURE: [Patient is met in the holding area. H&P was reviewed. Consent was confirmed. Her right wrist was marked. Patient is taken to operative room. Transferred supine position operating room table. Right arm abducted over radiolucent armboard. Tourniquet applied to the left upper arm. Total tourniquet time 20 minutes. With the tourniquet a not inflated patient started to move her right arm. She was switched to general anesthetic. right arm was prepped and draped from the elbow down to the fingers. Infiltration with Marcaine epinephrine approximately 2 cm above the distal wrist crease at a proximal wrist crease and in the palmar soft tissue subcutaneously at the transverse ligament. We then made a proxy 1 cm incision transversely. Made sure to incise the wrist fascia. We then bluntly entered the carpal tunnel with a [place]. We then used the Arthrex dilators incrementally. We then used a synovial elevator. We then proceeded with the arthritis arthroscope. We visualize distal aspect of the carpal tunnel. We made sure not to incise the fat distally. We then started from distal to proximal to release the carpal tunnel. We able to visualize the longitudinal strands of the palmar fascia and some muscle and fat. We thought we got good complete release of the transverse carpal ligament. We made sure with the scope to ensure that we release the full carpal tunnel. We then using tenotomy scissors release proximally and full arrest transverse fascia. We then used the Arthrex dilators again and there was much freer passage of the dilators with no resistance. Irrigated wound copious amounts of saline. Closed with 3-0 Monocryl running with Dermabond and Steri-Strips to help with closure. Sterile bulky dressing applied to the wrist for support. Patient was then recovered from anesthesia. Transferred to the stretcher. Taken to recovery in a stable manner Patient was moving hand with no issues after the procedure. He had good pulses and capillary refill. Plan: Patient can be discharge. With activities with the wrist Jhdn-enc-vetxoop Tylenol and anti-inflammatories for pain Follow-up in 1 to 2 weeks as an outpatient for wound check JACIEL ROLLE MD Apr 18, 2021 16:41
[2021-04-18 17:36] VITALS: BP 137/77
[2021-04-18] MEDS ORDERED: oxyCODONE 5MG TAB PO PRN (17:55)
[2021-04-18] MEDS ORDERED: HYDROMORPHONE HCL 0.5 MG/ 0.5 ML SYRINGE (J1170 PER 1) IV PRN (17:55)
[2021-04-18] MEDS ORDERED: LR 1,000 ML IV SCH ×2 (17:55→18:05)
[2021-04-18] MEDS ORDERED: fentaNYL 100 MCG/2 ML INJECTION (J3010) IV PRN (17:55)
[2021-04-18] MEDS ORDERED: ONDANSETRON 4MG/2ML VIAL IV PRN (17:55)
== END 2021-04-18 17:38 | disposition home or self-care (01) ==
LOC: M SDC 10:29
PROVIDERS: ATTEND Orthopaedic Surgery
DX: G56.01 Carpal tunnel syndrome, right upper limb (principal); Z98.84 Bariatric surgery status; Z79.899 Other long term (current) drug therapy; E03.9 Hypothyroidism, unspecified; I10 Essential (primary) hypertension
CPT/HCPCS: 29848; J0690; J1100; J2250; J2405; J3010

== ENCOUNTER → 2021-08-15 | Outpatient (REF) | payer OTHER ==
[~2021-08-15] MED LIST changes: -LR 1,000 ML IV ONE; -ceFAZolin SOD 2 GM in IV 1 EA IV ONE
[2021-08-15 11:50] LABS: HEMATOCRIT 37.9 % (36.0-47.0); HEMOGLOBIN 12.3 g/dl (12.0-15.5); MEAN CORPUSCULAR HEMOGLOBIN 29.6 pg (27.0-33.0); MEAN CORPUSCULAR HGB CONC 32.5 g/dl (32.0-36.5); MEAN CORPUSCULAR VOLUME 91.1 fl (80.0-96.0); PLATELET COUNT, AUTOMATED 371 10^3/uL (150-450); RED BLOOD COUNT 4.16 10^6/uL (4.00-5.40); WHITE BLOOD COUNT 8.8 10^3/uL (4.0-10.0)
[2021-08-15 12:31] LABS: ALBUMIN 3.7 GM/DL (3.2-5.2); ALT/SGPT 24 U/L (12-78); BILIRUBIN,TOTAL 0.4 MG/DL (0.2-1.0); BLOOD UREA NITROGEN 17 MG/DL (7-18); CALCIUM LEVEL 9.2 MG/DL (8.5-10.1); CARBON DIOXIDE LEVEL 29 MEQ/L (21-32); CHLORIDE LEVEL 106 MEQ/L (98-107); CHOLESTEROL LEVEL 206 MG/DL (<200); CHOLESTEROL RISK RATIO 3.551 (<5); CREATININE FOR GFR 0.87 MG/DL (0.55-1.30); FERRITIN 35 NG/ML (8-252); GLOMERULAR FILTRATION RATE > 60.0 (>58); GLUCOSE, FASTING 93 MG/DL (70-100); HDL CHOLESTEROL 58 MG/DL (>40); IRON (FE) 82 UG/DL (50-170); LDL CHOLESTEROL 119 MG/DL (<100); NON-HDL-C 148 MG/DL; PERCENT SATURATION 21.5 % (13.2-45.0); POTASSIUM SERUM 4.4 MEQ/L (3.5-5.1); SODIUM LEVEL 139 MEQ/L (136-145); THYROID STIMULATING HORMONE 0.058 uIU/ML (0.358-3.740); TOTAL 25(OH) VITAMIN D 17.6 NG/ML (30.0-100.0); TOTAL IRON BINDING CAPACITY 381 UG/DL (250-450); TRIGLYCERIDES LEVEL 146 MG/DL (<150); VITAMIN B12 LEVEL 252 PG/ML (247-911)
== END ==
LOC: M SFHCADAM 08:22
PROVIDERS: ATTEND Nurse Practitioner Adult Health
DX: Z00.00 Encounter for general adult medical examination without abnormal findings (principal); E03.9 Hypothyroidism, unspecified; E55.9 Vitamin D deficiency, unspecified; Z13.220 Encounter for screening for lipoid disorders; Z98.84 Bariatric surgery status

== ENCOUNTER → 2021-11-29 | Outpatient (REF) | payer OTHER ==
[2021-11-29 14:07] LABS: THYROID STIMULATING HORMONE 0.012 uIU/ML (0.358-3.740)
[2021-11-29 14:31] LABS: TOTAL 25(OH) VITAMIN D 32.3 NG/ML (30.0-100.0)
== END ==
LOC: M SFHCADAM 12:41
PROVIDERS: ATTEND Nurse Practitioner Adult Health
DX: E55.9 Vitamin D deficiency, unspecified (principal); E03.9 Hypothyroidism, unspecified

== ENCOUNTER → 2022-06-17 | Outpatient (CLI) | payer OTHER ==
[2022-06-17 18:25] LABS: THYROID STIMULATING HORMONE 0.543 uIU/ML (0.55-4.78)
[2022-06-17 18:26] LABS: ALBUMIN 3.4 G/DL (3.2-5.2); BILIRUBIN,TOTAL 0.2 MG/DL (0.3-1.2); CALCIUM LEVEL 8.8 MG/DL (8.5-10.1); CREATININE FOR GFR 1.15 MG/DL (0.55-1.30); GLOMERULAR FILTRATION RATE 54.6 (>58); POTASSIUM SERUM 4.5 MMOL/L (3.5-5.1); TOTAL PROTEIN 6.7 G/DL (5.7-8.2)
[2022-06-17 18:27] LABS: FREE T4 1.35 NG/DL (0.89-1.76)
[2022-06-17 19:03] LABS: HEMOGLOBIN A1c 5.3 % (4.0-6.0)
== END ==
LOC: M PLALAB 16:44
PROVIDERS: ATTEND Nurse Practitioner Adult Health
DX: Z00.00 Encounter for general adult medical examination without abnormal findings (principal); E88.81 Metabolic syndrome and other insulin resistance; E03.9 Hypothyroidism, unspecified; Z98.84 Bariatric surgery status

== ENCOUNTER → 2022-06-26 | Outpatient (CLI) | payer OTHER | LOC: M SOG 08:08 | PROVIDERS: ATTEND Orthopaedic Surgery | DX: M25.561 Pain in right knee (principal) ==

== ENCOUNTER → 2022-09-30 | Outpatient (CLI) | payer OTHER ==
[2022-09-30 13:38] LABS: BLOOD UREA NITROGEN 15 MG/DL (9-23); CALCIUM LEVEL 9.2 MG/DL (8.5-10.1); CARBON DIOXIDE LEVEL 26 MMOL/L (20-31); CHLORIDE LEVEL 105 MMOL/L (98-107); CREATININE FOR GFR 0.82 MG/DL (0.55-1.30); GLOMERULAR FILTRATION RATE > 60.0 (>58); GLUCOSE, FASTING 85 MG/DL (60-100); SODIUM LEVEL 136 MMOL/L (136-145)
[2022-09-30 13:41] LABS: TOTAL 25(OH) VITAMIN D 17.9 NG/ML (20.0-100.0)
== END ==
LOC: M PLALAB 10:21
PROVIDERS: ATTEND Nurse Practitioner Adult Health
DX: E03.9 Hypothyroidism, unspecified (principal)

== ENCOUNTER → 2023-04-29 | Outpatient (CLI) | payer OTHER | LOC: M WHC 06:55 | PROVIDERS: ATTEND Nurse Practitioner Adult Health | DX: Z12.31 Encounter for screening mammogram for malignant neoplasm of breast (principal) ==

== ENCOUNTER → 2023-06-30 | Outpatient (CLI) | payer OTHER ==
[2023-06-30 15:13] LABS: THYROID STIMULATING HORMONE 19.077 uIU/ML (0.55-4.78); TOTAL 25(OH) VITAMIN D 13.2 NG/ML (20.0-100.0)
[2023-06-30 15:14] LABS: ALBUMIN 3.5 G/DL (3.2-5.2); ALKALINE PHOSPHATASE 67 U/L (46-116); ALT/SGPT 14 U/L (7.0-40); AST/SGOT 11 U/L (<34); BILIRUBIN,TOTAL 0.4 MG/DL (0.3-1.2); BLOOD UREA NITROGEN 9 MG/DL (9-23); CARBON DIOXIDE LEVEL 26 MMOL/L (20-31); CHLORIDE LEVEL 107 MMOL/L (98-107); GLOMERULAR FILTRATION RATE > 60.0 (>58); GLUCOSE, FASTING 86 MG/DL (60-100); POTASSIUM SERUM 4.6 MMOL/L (3.5-5.1); SODIUM LEVEL 138 MMOL/L (136-145); TOTAL PROTEIN 6.6 G/DL (5.7-8.2)
[2023-06-30 15:15] LABS: FREE T4 1.08 NG/DL (0.89-1.76)
== END ==
LOC: M PLALAB 10:46
PROVIDERS: ATTEND Nurse Practitioner Adult Health
DX: E03.9 Hypothyroidism, unspecified (principal); Z12.4 Encounter for screening for malignant neoplasm of cervix; I10 Essential (primary) hypertension; E55.9 Vitamin D deficiency, unspecified; R87.610 Atypical squamous cells of undetermined significance on cytologic smear of cervix (ASC-US)

== ENCOUNTER → 2023-07-21 | Outpatient (CLI) | payer OTHER | LOC: M RAD 11:36 | PROVIDERS: ATTEND Nurse Practitioner Adult Health | DX: R10.32 Left lower quadrant pain (principal) ==

== ENCOUNTER 2023-08-11 09:04 | Day surgery (SDC) | payer OTHER ==
[~2023-08-11] VITALS: Ht 160 cm; Wt 98.3 kg
[~2023-08-11 09:04] MED LIST changes: +BUPR300T92 PO; +NS 1,000 ML IV ONE
[2023-08-11] MEDS ORDERED: ROCURONIUM BROMIDE 50MG/5ML VIAL ONE (11:15)
[2023-08-11] MEDS ORDERED: LIDOCAINE 2% 100MG/5ML SDV (FOR ANES.) ONE (11:15)
[2023-08-11] MEDS ORDERED: propofoL 500 MG/50 ML VIAL ONE (11:15)
[2023-08-11 11:24] VITALS: TEMP 96.7
[2023-08-11 11:47] VITALS: BP 152/68; O2SAT 98
== END 2023-08-11 11:49 | disposition home or self-care (01) ==
LOC: M OPP 09:04
PROVIDERS: ATTEND Internal Medicine Gastroenterology
DX: Z12.11 Encounter for screening for malignant neoplasm of colon (principal); Z79.890 Hormone replacement therapy; Z79.899 Other long term (current) drug therapy

== ENCOUNTER → 2023-08-21 | Outpatient (CLI) | payer OTHER ==
[~2023-08-21] MED LIST changes: -NS 1,000 ML IV ONE
[2023-08-21 14:51] LABS: THYROID STIMULATING HORMONE 0.376 uIU/ML (0.55-4.78)
[2023-08-21 14:52] LABS: FREE T4 1.91 NG/DL (0.89-1.76)
== END ==
LOC: M PLALAB 09:31
PROVIDERS: ATTEND Nurse Practitioner Adult Health
DX: E03.9 Hypothyroidism, unspecified (principal)

== ENCOUNTER → 2024-06-16 | Outpatient (CLI) | payer OTHER ==
[~2024-06-16] MED LIST changes: +BUPR-597 PO; -BUPR300T92 PO
[2024-06-16 15:09] LABS: ALBUMIN 3.6 G/DL (3.2-5.2); ALKALINE PHOSPHATASE 71 U/L (35-104); ALT/SGPT 16 U/L (7.0-40); AST/SGOT 12 U/L (<34); BILIRUBIN,TOTAL 0.3 MG/DL (0.3-1.2); BLOOD UREA NITROGEN 15 MG/DL (9-23); CALCIUM LEVEL 9.5 MG/DL (8.5-10.1); CARBON DIOXIDE LEVEL 26 MMOL/L (20-31); CHLORIDE LEVEL 108 MMOL/L (98-107); CREATININE FOR GFR 0.78 MG/DL (0.55-1.30); FREE T4 1.25 NG/DL (0.89-1.76); GLOMERULAR FILTRATION RATE > 60.0 (>58); GLUCOSE, FASTING 156 MG/DL (60-100); POTASSIUM SERUM 4.8 MMOL/L (3.5-5.1); SODIUM LEVEL 141 MMOL/L (136-145); THYROID STIMULATING HORMONE 4.631 uIU/ML (0.55-4.78); TOTAL PROTEIN 7.2 G/DL (5.7-8.2)
[2024-06-16 15:48] LABS: HEMOGLOBIN A1c 5.4 % (4.0-6.0)
== END ==
LOC: M PLALAB 09:46
PROVIDERS: ATTEND Nurse Practitioner Adult Health
DX: I10 Essential (primary) hypertension (principal)

== ENCOUNTER → 2024-09-10 | Outpatient (CLI) | payer OTHER | LOC: M WHC 14:35 | PROVIDERS: ATTEND Nurse Practitioner Adult Health | DX: Z12.31 Encounter for screening mammogram for malignant neoplasm of breast (principal) ==